=== PATIENT | male | born 1955 | race Caucasian/White ===

== ENCOUNTER → 2019-04-26 | Outpatient (CLI) | payer OTHER | LOC: COL.RAD 08:35 | DX: Z01.812 Encounter for preprocedural laboratory examination (principal); N40.0 Benign prostatic hyperplasia without lower urinary tract symptoms; N40.2 Nodular prostate without lower urinary tract symptoms | CPT/HCPCS: A9503; Q9967 ==

== ENCOUNTER 2019-06-05 11:04 | Inpatient (IN) | payer OTHER ==
[2019-06-13] VITALS (477 sets, daily range): BP systolic 64–145; BP diastolic 34–78; PULSE 41–97; TEMP 97.7–98.6; O2SAT 91–100
--- NOTE | 2019-06-13 06:30 | NUR ---
PT AMBULATED BACK TO OUTPATIENT BAY 1 ACCOMPANIED BY . PT A/OX3, IV PLACED IN LEFT FOREARM. CONSENT SIGNED. QUESTIONS ANSWERED. CALL IN REACH.
[2019-06-13 10:26] LABS: HEMATOCRIT 29.8 % (42.0-52.0); HEMOGLOBIN 9.9 g/dl (13.5-18.0)
--- NOTE | 2019-06-13 11:20 | NUR ---
Patient has been back from surgery for about 15 mins, at 1100 his came to the desk and stated the patient is unresponsive and won't talk to her. Went to check on the patient he would not wake up sternal rub. His BP dropped to 81/41. Laid his head flat and turned off the epidural. Patients stated this has happened in the past and laying him flat has helped. She stated that when it happened last time that his WBG was low. Rechecked the BP and it has dropped to 64/34. We ran in the LR that was brought up with patient from PACU. Checking his glucse and is 187. Ladan Osorio RN and Alessia Rocha RN came to bedside. Patient than started to wake up. We put his head down in trendelenberg. His BP is table at this time at 96/48. Notitified Dr Odom. He ordered a Hospitalist consult. They have been notified. Dr Jaimes has been in to see patient. Anesthesia notified that we turned off the epidural at this time. No other changes at this time. Call light within reach. 1000 ml of NS bolus infusing at this time. Will continue to monitor.
--- NOTE | 2019-06-13 11:33 | NUR ---
First visit from the surveillance system monitor. No needs right now.
[2019-06-13 11:53] LABS: MEAN CELL VOLUME 85 fl (80.0-100.0); MEAN CORPUSCULAR HGB CONC 34 g/dl (33.0-37.0); MEAN PLATELET VOLUME 9.6 fl (7.4-10.4); PLATELET COUNT 154 K/mm3 (130-400); RED BLOOD COUNT 3.16 M/mm3 (4.20-5.60)
[2019-06-13 11:54] LABS: HEMOGLOBIN 9.1 g/dl (13.5-18.0); MEAN CORPUSCULAR HEMOGLOBIN 29 pg (27.0-31.0)
[2019-06-13 12:02] LABS: ALBUMIN 2.2 gm/dL (3.5-5.0); CALCIUM 7.4 mg/dL (8.4-10.2); CREATININE, serum 0.92 (0.66-1.25); POTASSIUM 3.6 mmol/L (3.4-5.0); TOTAL PROTEIN 4.2 gm/dL (6.4-8.2)
[2019-06-13 12:22] LABS: BASOPHIL 1 % (0-2); LYMPHOCYTE 6 % (20.0-51.0); NEUTROPHILS 91 % (42.0-75.2); PLATELET ESTIMATE NORMAL (NORMAL)
--- NOTE | 2019-06-13 13:16 | NUR ---
Patient called and asked to be checked. Patient was sitting up just a little bit in the bed to take ice chps and his BP dropped to 69/41. Patient returned to trendelenburg and his BP is back up to 125/66. Dr Jaimes notified and in room speaking with patient and family. Patient will be transferring to ICU after PICC line being placed. No other changes at this time. Call light within reach.
--- NOTE | 2019-06-13 14:10 | NUR ---
Transferred patient to ICU 3. Report given to Fawn Quezada RN. His is going to go down and wait in the ICU waiting area. Patients belongings packed up and sent with patient. No other changes at this time.
[2019-06-13 17:53] LABS: HEMATOCRIT 29.1 % (42.0-52.0)
--- NOTE | 2019-06-13 19:10 | NUR ---
Bedside report received from URIEL Srivastava.
--- NOTE | 2019-06-13 20:00 | NUR ---
Patient awake and laying in bed at this time. He appears uncomfortable. No SOB, has complaints of pain rated 7/10. Cannot give percocet now, will try tylenol. Patient is alert and oriented, following commands. Assessment complete. Lungs are clear in all snow. HR and rhythm are regular with normal S1 and S2 heard. BP's are stable and WNL. Bowel sounds are active x4. Patient does have blood shadowing to his midline incision but with minimal increase from previous shifts markings. Patient's delfian drain is patent and blood is present in the tubing. Patient's machuca catheter is in place and draining. Patient has no further needs at this time. Will continue to monitor. Call light within reach.
[2019-06-14] VITALS (556 sets, daily range): BP systolic 136–154; BP diastolic 62–79; PULSE 64–92; TEMP 98–98.3; O2SAT 88–100
--- NOTE | 2019-06-14 | NUR ---
Patient asleep upon entrance into the room. Awakens easily to name. Vitals obtained and remain stable and WNL. Patient still has complaints of pain, but says it is much improved from earlier in the shift. Patient states he does not want tylenol given again as the tablets made him nauseated. Has tolerated percocet despite tylenol. Patient has no further needs at this time. Will continue to monitor.
--- NOTE | 2019-06-14 04:00 | NUR ---
Patient awake at this time resting in bed. Patient says pain is much improved and he is fairly comfortable right now. Vitals remain stable. Patient has no current needs at this time. Will continue to monitor. Call light within reach.
--- NOTE | 2019-06-14 04:40 | NUR ---
Patient awake at this time. Patient complains of feeling something dripping at his side. Patient's dressing is leaking small amounts of blood. reinfored dressing with gauze and tape. Patient requests to stand up for a little bit. Assisted patient with all cords and standing. Patient was able to stand and stretch for several minutes before returning to bed. Pads underneath him were changed. Patient had minimal pain with standing and feeling like his pain is under good control now. Assisted him with getting comfortable in bed. No further needs at this time. Will continue to monitor. Call light within reach.
[2019-06-14 05:10] LABS: BASO % 0.1 % (0.0-2.0); GRAN # 10.3 (1.4-6.5); GRAN % 84.9 % (42.2-75.2); HEMATOCRIT 26.1 % (42.0-52.0); HEMOGLOBIN 8.9 g/dl (13.5-18.0); LYMPH # 0.9 (1.2-3.4); LYMPH % 7.2 % (20.0-51.0); MEAN CELL VOLUME 85 fl (80.0-100.0); MEAN CORPUSCULAR HEMOGLOBIN 29 pg (27.0-31.0); MEAN CORPUSCULAR HGB CONC 34 g/dl (33.0-37.0); MEAN PLATELET VOLUME 9.3 fl (7.4-10.4); MONO # 0.9 (0.1-0.6); MONO % 7.4 % (1.7-9.3); PLATELET COUNT 170 K/mm3 (130-400); RED BLOOD COUNT 3.09 M/mm3 (4.20-5.60); REDCELL DISTRIBUTION WIDTH-CV 12.4 % (11.5-14.5)
[2019-06-14 05:23] LABS: CALCIUM 7.8 mg/dL (8.4-10.2); CREATININE, serum 0.95 (0.66-1.25); POTASSIUM 4.4 mmol/L (3.4-5.0)
--- NOTE | 2019-06-14 07:00 | NUR ---
Bedside shift report received from URIEL Villar. Patient is connected to bedside monitor, vital signs are stable. Full assessment completed. All invasive lines and tubes are intact, without kinks. Patient is awake, alert, and has no complaints or concerns at this time.
--- NOTE | 2019-06-14 07:41 | NUR ---
Bedside report given to URIEL Jimenez
--- NOTE | 2019-06-14 12:55 | NUR ---
SW attended clinical rounds to discuss discharge planning. Doctor reports patient can transfer upstairs today. Patient reports he lives independently at home with his and plans to return there upon discharge. Patient also reports he works fulltime. Patient's PCP is Dr Jim Foss and he obtains medications from [facility] in [place]. Patient does not use any DME or home health services. Patient is independent with all ADLs. Patient does not have a DPOA-HC but patient and would like a copy of the DPOA-HC form. MILY provided the form. SW does not anticipate any discharge needs but will continue to follow as needed.
--- NOTE | 2019-06-14 13:00 | NUR ---
Anesthesia contacted to remove epidural, per 's orders.
--- NOTE | 2019-06-14 13:42 | NUR ---
Patient has reached his max Acetaminophen level with PRN Percocet. Dr. Jaimes notified of this issue to see if an additional pain medication is needed.
--- NOTE | 2019-06-14 14:02 | NUR ---
Patient report given to Emile chief strategy officer at this time. RN has no questions or concerns.
--- NOTE | 2019-06-14 15:15 | NUR ---
Patient transferred to surgical bed 345 via wheelchair by HIGH SCHOOL HISTORY TEACHER with no complications. Patient's personal belongings at bedside. Care handed over to URIEL Baptiste at this time. Epidural remains in place, but off and no medication infusing. Owens catheter in place. Surgical drains cut and to bag drainage. Patient sitting in bed, call light within reach. Chart placed on surgical small package and bundle sorter clerk desk at this time.
--- NOTE | 2019-06-14 15:19 | NUR ---
PT TO ROOM 345 FROM ICU WITH REPORT FROM JEANNINE TREVINO. DRESSING TO MIDLINE CDI. EPIDURAL REMOVED PER VERBAL ORDER FROM RENETTA NIXON CRNA. PT TOLERATED WELL.
--- NOTE | 2019-06-14 17:14 | NUR ---
PT C/O GAS PAIN. ENCOURAGED PT TO AMBULATE HALLS. HE WALKED HALLS WITH INDEPENDENTLY.
--- NOTE | 2019-06-14 19:18 | NUR ---
DRESSING CHANGE COMPLETE. 75 + MLS DRAINAGE FROM DARYL DRAINS. LOWER 1/3 OF DRESSING MIDLINE SATURATED.
[2019-06-15 03:58] VITALS: BP 133/59; PULSE 90; TEMP 98.4
--- NOTE | 2019-06-15 04:47 | NUR ---
PT IN BED WITH HOB AT 30 DEGREE ANGLE, FRIED CATHETER HAS SMALL AMOUNT OF DRAINAGE THAT HAS BLOOD TINGED URINE. PT HAS AMBULATED IN HALLS EARLIER TODAY AND EATEN. PT HAS FAMILY AT BEDSIDE. NO NEEDS AT THIS TIME, CALL LIGHT WITHIN REACH.
[2019-06-15 06:11] LABS: BASO % 0.1 % (0.0-2.0); EOS # 0.1 (0.0-0.7); EOS % 0.4 % (0-4.0); GRAN # 10.8 (1.4-6.5); GRAN % 75.5 % (42.2-75.2); LYMPH # 2.1 (1.2-3.4); LYMPH % 14.9 % (20.0-51.0); MEAN CELL VOLUME 87 fl (80.0-100.0); MEAN CORPUSCULAR HGB CONC 33 g/dl (33.0-37.0); MEAN PLATELET VOLUME 9.7 fl (7.4-10.4); MONO # 1.2 (0.1-0.6); MONO % 8.6 % (1.7-9.3); PLATELET COUNT 181 K/mm3 (130-400); RED BLOOD COUNT 2.93 M/mm3 (4.20-5.60); REDCELL DISTRIBUTION WIDTH-CV 12.7 % (11.5-14.5)
[2019-06-15 06:12] LABS: HEMATOCRIT 25.5 % (42.0-52.0); HEMOGLOBIN 8.4 g/dl (13.5-18.0); MEAN CORPUSCULAR HEMOGLOBIN 29 pg (27.0-31.0)
[2019-06-15 06:22] LABS: CALCIUM 7.7 mg/dL (8.4-10.2); CREATININE, serum 1.03 (0.66-1.25); POTASSIUM 3.7 mmol/L (3.4-5.0)
--- NOTE | 2019-06-15 06:27 | NUR ---
PT AMBULATED AROUND FACILITY A COUPLE OF TIMES DURING THE NIGHT. PT HAD PAIN AROUND 2200 THIS SHIFT AND WAS GIVEN PAIN MEDICATION, BUT DID NOT NEED IT THE REST OF THE SHIFT. PT WAS HAVING SOME NAUSEA AND PRESSURE IN ABDOMEN. PT FELT LIKE HE HAD TO URINATE BUT COULD NOT. PT AWARE OF FRIED, BUT WANTED TO TAKE FRIED BAG OFF AND URINATE IN WITH REST OF CATHETER IN TOILET. PT WAS ADVISED THAT IT IS A STERILE FIELD AND THAT THE URINE IS TO DRAIN INTO FRIED BAG. PT'S URINE OUTPUT WAS ABOUT 225 AT 0200. BLADDER SCANNED PT, BUT BECAUSE OF INCISION WAS NOT ABLE TO GET A READING. CHARGE NURSE EFREN TREVINO, CAME INTO ROOM AND TRIED WELL TO BLADDER SCAN PT BUT WAS NOT ABLE TO GET A READING, ALSO, CHANGED HIS DRSG OVER MIDLINE INCISION. THEREFORE, SHE IRRIATED CATHETER WITH 50 ML OF STERILE WATER. IV FLUIDS WERE STOPPED BY DAYSHIFT NURSE. PUT IV FLUIDS BACK ON PT. PT WAS NOT DRINKING THAT MUCH. PT'S NAUSEA SUBSIDED AFTER IRRIATION AND HE FELT BETTER. PT WENT FOR A WALK ABOUT 0315 X1 ASSIST BY FACILITY MAINTENANCE TECHNICIAN. AFTER IRRIATION. PT WENT BACK TO BED AND SLEPT LESS THAN AN HOUR AND WAS BACK UP. ASSISTED OUT OF BED AND PT SAT AT SIDE OF BED ABOUT 0510. PT DENIED PAIN OR DISCOMFORT AND PT HAS SMALL AMOUNT OF DRAINAGE IN BAG THAT IS BLOOD TINGED AND CLOUDY. PT WENT FOR ANOTHER WALK AROUND FACILITY ABOUT 0505 ASSISTED BY FACILITY MAINTENANCE TECHNICIAN. PT SAT AT SIDE OF BED AND WAS THEN ASSISTED BACK TO BED. PT RESTING/SLEEPING AT THIS TIME. CALL LIGHT WITHIN REACH.
[2019-06-15 08:40] VITALS: BP 123/68; PULSE 94; TEMP 98.4
[2019-06-15 11:16] VITALS: BP 149/77; PULSE 90; TEMP 98.8
[2019-06-15 16:29] VITALS: BP 136/76; PULSE 98; TEMP 998.1
--- NOTE | 2019-06-15 18:22 | NUR ---
Patient has rested intermittently during the shift. Patient is alert and oriented, answers questions appropriately. Upon assessment this morning delfina drain bag was leaking and midline dressing was saturated. Removed midline dressing and did not reapply, per order. Pediatric urine bag was being used for delfina bag, replaced bag. Delfina bag continued to leak, so was replaced with a urostomy appliance and bag. Drain and appliance has remained clean and dry since. Drainage in the delfina bag has been progressively less bloody during the shift. Owens remains in place, urine output has been low, but adequate. Urine is jumana/blood tinged and clear. Patient has ambulated several times in the halls with his during the shift. Patient continues to complain of nausea, no emesis. Patient encouraged to attmept oral intake. IVF continue per order. Patient resting currently, denies needs at this time, call light within reach.
[2019-06-15 19:33] VITALS: BP 142/77; PULSE 99; TEMP 98.3
--- NOTE | 2019-06-15 23:06 | NUR ---
PT IN BED. DENIES NEED FOR PAIN MEDS. 450 mL OF CLEAR, PINK URINE DRAINED FROM GRADY SITE.
[2019-06-15 23:14] VITALS: BP 141/73; PULSE 103; TEMP 97.9
[2019-06-16 03:57] VITALS: BP 146/65; PULSE 98; TEMP 97.4
[2019-06-16 06:19] LABS: BASO % 0.3 % (0.0-2.0); EOS # 0.1 (0.0-0.7); EOS % 0.8 % (0-4.0); GRAN # 8.9 (1.4-6.5); GRAN % 74.3 % (42.2-75.2); LYMPH # 1.7 (1.2-3.4); MEAN CELL VOLUME 87 fl (80.0-100.0); MEAN CORPUSCULAR HGB CONC 33 g/dl (33.0-37.0); MONO # 1.2 (0.1-0.6); PLATELET COUNT 184 K/mm3 (130-400); RED BLOOD COUNT 2.99 M/mm3 (4.20-5.60); REDCELL DISTRIBUTION WIDTH-CV 12.4 % (11.5-14.5)
[2019-06-16 06:22] LABS: HEMOGLOBIN 8.5 g/dl (13.5-18.0); MEAN CORPUSCULAR HEMOGLOBIN 28 pg (27.0-31.0)
[2019-06-16 06:34] LABS: CALCIUM 8.3 mg/dL (8.4-10.2); CREATININE, serum 0.86 (0.66-1.25); POTASSIUM 3.8 mmol/L (3.4-5.0)
[2019-06-16 08:43] VITALS: BP 138/65; PULSE 92; TEMP 98.9
--- NOTE | 2019-06-16 10:00 | NUR ---
Patient is resting in bed at this time. Patient is alert and oriented, answers questions appropriately. Patient reports abdomen is sore but denies pain at this time. Owens remains in place with dark bloody urine draining. Ronit drains cut and bagged, urostomy appliance and drain in place over sebastián drains to catch drainage. Drains are producing a considerable amount of clear pink drainage. Patient denies nausea at this time, call light within reach.
[2019-06-16 12:48] VITALS: BP 141/68; PULSE 92; TEMP 98.6
[2019-06-16 15:38] VITALS: BP 122/58; PULSE 110; TEMP 98.3
--- NOTE | 2019-06-16 16:38 | NUR ---
Patient has ambulated in the halls several times during the shift independently with his . Patient continues to deny pain and reports he has an appetite this evening. Patient denies nausea, call light within reach.
[2019-06-16 19:53] VITALS: BP 144/71; PULSE 94; TEMP 98.2
[2019-06-16 22:40] VITALS: BP 131/70; PULSE 93; TEMP 98.2
[2019-06-17 04:45] VITALS: BP 135/68; PULSE 92; TEMP 98.1
[2019-06-17 06:58] LABS: BASO % 0.4 % (0.0-2.0); EOS # 0.3 (0.0-0.7); EOS % 2.9 % (0-4.0); GRAN # 7.4 (1.4-6.5); GRAN % 70.3 % (42.2-75.2); LYMPH # 1.7 (1.2-3.4); LYMPH % 16.4 % (20.0-51.0); MEAN CELL VOLUME 87 fl (80.0-100.0); MEAN CORPUSCULAR HGB CONC 33 g/dl (33.0-37.0); MEAN PLATELET VOLUME 9.8 fl (7.4-10.4); MONO % 9.5 % (1.7-9.3); PLATELET COUNT 193 K/mm3 (130-400); REDCELL DISTRIBUTION WIDTH-CV 12.6 % (11.5-14.5)
[2019-06-17 06:59] LABS: HEMATOCRIT 24.3 % (42.0-52.0); HEMOGLOBIN 8.1 g/dl (13.5-18.0); MEAN CORPUSCULAR HEMOGLOBIN 29 pg (27.0-31.0)
[2019-06-17 07:11] LABS: CALCIUM 8.3 mg/dL (8.4-10.2); CREATININE, serum 0.75 (0.66-1.25); POTASSIUM 3.7 mmol/L (3.4-5.0)
[2019-06-17 08:47] VITALS: BP 148/76; PULSE 94; TEMP 98.2
--- NOTE | 2019-06-17 08:50 | NUR ---
Patient in bed resting. Alert and oriented x 3. Shift assessment complete. Ronit drain with urostomy bag in place with clear jumana urine in bag. Owens to dependent drainage with clear jumana urine. Midline incision, edges well approximated, jeff intact. PICC line to DELFINA without complications, Fluids infusing per orders via pump. INT to left forarm. Patient denies pain or further needs at this time.
--- NOTE | 2019-06-17 09:42 | NUR ---
Left message for Dr. Odom about PICC line. No orders to discontinue on discharge.
[2019-06-17 12:17] VITALS: BP 133/70; PULSE 86; TEMP 98
--- NOTE | 2019-06-17 13:00 | NUR ---
Discharge education provided to patient. Educated on signs and symptoms of infection and when to call provider. Patient educated on applying ostomy as well as catheter care. Patient demonstrated back teaching on how to change out from leg back to drainage bag, as well as how to empty out catheter. Denies pain or further needs at this time. Patient out by wheelchair with surgical staff and spouse.
== END 2019-06-17 13:00 | disposition home or self-care (01) | DRG 707 ==
LOC: INPTSU 06-13 05:30 → SURG 06-13 07:30 → ICU 06-13 14:10 → SURG 06-14 15:01
PROVIDERS: Hospitalist; Physician Assistant; Registered Nurse; ADMIT Urology
PROC: 07TC0ZZ Resection of Pelvis Lymphatic, Open Approach (ICD-10-PCS; 2019-06-13)
PROC: 0VT00ZZ Resection of Prostate, Open Approach (ICD-10-PCS; principal; 2019-06-13 07:30)
DX: C61 Malignant neoplasm of prostate (principal); D62 Acute posthemorrhagic anemia; K56.7 Ileus, unspecified; I95.81 Postprocedural hypotension; E11.9 Type 2 diabetes mellitus without complications; K58.9 Irritable bowel syndrome, unspecified; G40.909 Epilepsy, unspecified, not intractable, without status epilepticus; G47.33 Obstructive sleep apnea (adult) (pediatric); J30.9 Allergic rhinitis, unspecified; Z91.040 Latex allergy status; R55 Syncope and collapse; R06.6 Hiccough; N39.498 Other specified urinary incontinence
CPT/HCPCS: 99223; 99231-AI; 99232-AI; C1751; J0690; J1100; J1815; J1885; J2250; J2405; J2704; J3010; J7030; J7120

== ENCOUNTER → 2019-06-23 | Outpatient (CLI) | payer OTHER | LOC: COL.LAB 09:28 | DX: R19.7 Diarrhea, unspecified (principal) ==